=== PATIENT | male | born 1960 | race African-American/Black ===

== ENCOUNTER → 2017-04-15 | Day surgery (SDC) | payer OTHER ==
[~2017-04-15] MED LIST: NO MEDICATIONS
--- NOTE | ~2017-04-15 | OR ---
Unit #: [id number] #: [id number] Patient: MARLA SUGGS [id number] [address] [address] [id number] MR#: [id number] NAME: MARLA SUGGS ROOM: Date of Procedure: 04/15/2017 Admission Date: 04/15/2017 Surgeon: Diogo Rodriguez M.D. : 1960 Attending Physician: Diogo Rodriguez M.D. Primary Care Physician: [facility] [place] OPERATIVE REPORT PROCEDURE PERFORMED Colonoscopy with biopsies. INDICATIONS FOR PROCEDURE A 56-year-old average risk for colorectal cancer. MEDICATIONS Monitored anesthesia. POSTOPERATIVE FINDINGS 1. Small polyps on the ileocecal valve itself. Biopsies were taken. 2. Rest of the colon to cecum was normal. 3. Good prep. PLAN Follow up on the pathology report. Repeat colonoscopy in 3 years to 5 years. DESCRIPTION OF PROCEDURE The patient was explained of the procedure, risks, and benefits along with the risks and benefits of anesthesia. Monitored anesthesia was given. The scope was lubricated, passed up the rectum, advanced under direct vision all the way to the cecum. Cecum was identified by ileocecal valve and appendiceal orifice. Small polyp seen in the posterior wall of the ileocecal valve. Biopsies were taken. Rest of the colonic mucosa was normal. I retroflexed in the rectum, internal hemorrhoids were noted. The scope was gently pulled out. He tolerated it well. No major complications were seen. Dictated by... Santana Mckeon/robin TD: 05/04/2017 15:49 JOB #: [id number] CC: Sammy Mosley M.D. Unit #: [id number] #: [id number] Patient: MARLA SUGGS OPERATIVE REPORT Page 1 of 1 X Diogo Rodriguez MD X PROCEDURE OPERATIVE NOTE
== END | disposition home or self-care (01) ==
LOC: COPS 06:37
DX: Z12.11 Encounter for screening for malignant neoplasm of colon (principal); K63.5 Polyp of colon; I10 Essential (primary) hypertension
CPT/HCPCS: 88305; J2250